=== PATIENT | female | born 1950 | race Caucasian/White ===

== ENCOUNTER → 2017-08-24 | Outpatient (CLI) | payer OTHER ==
[~2017-08-24] MED LIST: ANTACID-ANTIGA1 EACH PO; ANTI-DIARRHEA2 MG PO; ASPIRIN EC325 MG PO; ASPIRIN325 MG PO; Advair 250/50 Diskus IH; CARDIZEM CD360 MG PO; CARTIA XT240 MG PO; CARVEDILOL12.5 MG PO; CEFEPIME-D1 GM/50 ML IV; CENTRUM SILVER1 EAC3 PO; CENTRUM TABLET1 EACH PO; CORDARONE200 MG PO; COREG12.5 M1 PO; CYCLOBENZAPRINE10 MG PO; Cardizem CD,Cartia X PO; Cordarone, Pacerone PO; DILTIAZEM 24HR240 MG PO; DITROPAN XL10 MG PO; ENBREL50 MG/1 ML SC; Ecotrin PO; FLEXERIL10 MG PO; FLEXERIL5 MG PO; FLUOXETINE HCL40 MG PO; FUROSEMIDE40 MG PO; GENACOTE325 MG PO; HYDROCHLOROTHIA25 MG PO; HYDROCODON-ACE1 EAC3 PO; IBUPROFEN800 MG PO; K-DUR20 MEQ PO; K-Dur PO; LEVAQUIN500 MG PO; LOPRESSOR25 MG PO; Lasix PO; MECLIZINE HCL12.5 M1 PO; MOTRIN IB200 MG PO; MOTRIN800 MG PO; MULTIVITAMIN1 EAC2 PO; PERCOCET 10/1 TABLET PO; PLAQUENIL200 MG PO; PRAVACHOL20 MG PO; PRAVACHOL40 MG; PREDNISONE10 MG PO; PRILOSEC40 MG PO; PRINIVIL5 MG PO; PROBIOTIC 4X C1 EACH PO; PROBIOTIC1 EAC1 PO; PROTONIX40 MG PO; Protonix PO; SALINE FLUSH 5 M5 ML IV; SYSTANE ULTRA 015 ML BOTH EYES; TREXALL10 MG PO; VANCOMYCIN1500 MG/25; VICODIN HP 11 TABLET PO; Vibramycin, Doryx PO; predniSONE PO
== END | disposition home or self-care (01) ==
LOC: CDC 12:39
DX: Z01.810 Encounter for preprocedural cardiovascular examination (principal); C43.9 Malignant melanoma of skin, unspecified; I48.91 Unspecified atrial fibrillation; R94.31 Abnormal electrocardiogram [ECG] [EKG]
CPT/HCPCS: 93000

== ENCOUNTER 2017-08-25 09:54 | Day surgery (SDC) | payer OTHER ==
[~2017-08-25] VITALS: Ht 172.7 cm; Wt 65.7 kg
[2017-08-25 11:23] VITALS: BP 129/72
[2017-08-25] MEDS ORDERED: PERCOCET 10/1 TABLET PO (14:07)
[2017-08-25 15:05] VITALS: BP 123/58
[2017-08-25 15:40] VITALS: BP 116/61
== END 2017-08-25 15:57 | disposition home or self-care (01) ==
LOC: SDC 09:54 → NUC 12:00 → SDC 15:57
PROC: 07BH0ZX Excision of Right Inguinal Lymphatic, Open Approach, Diagnostic (ICD-10-PCS; principal; 2017-08-25)
PROC: 0JBL0ZZ Excision of Right Upper Leg Subcutaneous Tissue and Fascia, Open Approach (ICD-10-PCS; principal; 2017-08-25)
DX: C43.71 Malignant melanoma of right lower limb, including hip (principal); C77.4 Secondary and unspecified malignant neoplasm of inguinal and lower limb lymph nodes; M06.9 Rheumatoid arthritis, unspecified; I11.0 Hypertensive heart disease with heart failure; I50.9 Heart failure, unspecified; Z79.82 Long term (current) use of aspirin; Z82.49 Family history of ischemic heart disease and other diseases of the circulatory system; Z83.3 Family history of diabetes mellitus; Z88.8 Allergy status to other drugs, medicaments and biological substances
CPT/HCPCS: 78195; 78999; 88305; 88307; 88341 TC; 88342 TC; A9541; J0330; J0690; J2250; J2405; J3010